=== PATIENT | male | born 1945 | race Two or more races ===

== ENCOUNTER 2024-07-11 05:25 | Day surgery (SDC) | payer MEDICARE, OTHER ==
[~2024-07-11] VITALS: Ht 170.2 cm; Wt 77.2 kg
[~2024-07-11 05:25] MED LIST: CYCLOPENTOLATE HCL 1% 2 ML OPHTHALMIC SOLUTION ONE; KETOROLAC TROMETHAMINE 0.5% 5 ML OPHTHALMIC SOLUTION ONE; MOXIFLOXACIN HCL 0.5% 3 ML OPHTHALMIC SOLUTION ONE; PHENYLEPHRINE HCL 2.5% 2 ML OPHTHALMIC SOLUTION ONE; RINGERS SOLUTION,LACTATED 500 ML IV ONE; TETRACAINE HCL/PF 0.5% 4 ML OPHTHALMIC SOLUTION ONE; TROPICAMIDE 1% 2 ML OPHTHALMIC SOLUTION ONE
[2024-07-11] MEDS ORDERED: EMPA10TA3 PO (06:04)
[2024-07-11] MEDS ORDERED: SIMV-46 PO (06:04)
[2024-07-11] MEDS ORDERED: LISI30TA4 PO (06:04)
[2024-07-11] MEDS: PHENYLEPHRINE HCL 2.5% 2 ML OPHTHALMIC SOLUTION OS SCH (06:08)
[2024-07-11] MEDS: KETOROLAC TROMETHAMINE 0.5% 5 ML OPHTHALMIC SOLUTION OS SCH (06:08)
[2024-07-11] MEDS: MOXIFLOXACIN HCL 0.5% 3 ML OPHTHALMIC SOLUTION OS SCH (06:09)
[2024-07-11] MEDS: TETRACAINE HCL/PF 0.5% 4 ML OPHTHALMIC SOLUTION OS SCH (06:09)
[2024-07-11] MEDS: TROPICAMIDE 1% 2 ML OPHTHALMIC SOLUTION OS SCH (06:14)
[2024-07-11] MEDS: CYCLOPENTOLATE HCL 1% 2 ML OPHTHALMIC SOLUTION OS SCH (06:14)
[2024-07-11] MEDS: RINGERS SOLUTION,LACTATED 500 ML IV ONE (06:15)
[2024-07-11] MEDS ORDERED: PrednisoLONE ACETATE 1% 5 ML OPHTHALMIC SUSPENSION ONE (06:34)
[2024-07-11 06:51] LABS: GLUCOMETER DEV NAME(LOC) SDS.; GLUCOSE,POINT OF CARE 71 MG/DL (70-110)
[2024-07-11] MEDS: BALANCED SALT 15 ML OPHTHALMIC IRRIG.SOLN ONE (08:05)
[2024-07-11] MEDS: EPINEPHrine 1:1,000 [1 MG/ML] VIAL ONE (08:06)
[2024-07-11] MEDS: LIDOCAINE/PF 1% 2 ML VIAL ONE (08:08)
[2024-07-11] MEDS: POVIDONE-IODINE 5% 30 ML OPHTHALMIC SOLUTION ONE (08:09)
[2024-07-11] MEDS: NEOMYCIN/POLYMYXIN B/DEXAMETH 3.5 GM OPHTHALMIC OINTMENT ONE (08:10)
[2024-07-11] MEDS ORDERED: PROPARACAINE HCL 0.5% 15 ML OPHTHALMIC SOLUTION OS ONE (08:45)
[2024-07-11] MEDS ORDERED: GLYCOPYRROLATE 0.2 MG/ML VIAL IM ONE (12:00)
[2024-07-11] MEDS ORDERED: MIDAZOLAM HCL 2 MG/2 ML VIAL IVP ONE (12:00)
[2024-07-11] MEDS ORDERED: FentaNYL CITRATE PF 100 MCG/2 ML VIAL IVP ONE (12:00)
[2024-07-11] MEDS ORDERED: PrednisoLONE ACETATE 1% 5 ML OPHTHALMIC SUSPENSION OS ONE (12:00)
[2024-07-11] MEDS ORDERED: HYALURONATE SOD 8.5MG/0.85ML 10 MG/ML SYRINGE IO ONE (12:00)
[2024-07-11] MEDS ORDERED: HYALURONATE SOD/CHONDROITIN SOD 0.5 ML VIAL IO ONE (12:00)
== END 2024-07-11 09:00 | disposition home or self-care (01) ==
LOC: SURGERY 05:25
PROVIDERS: ATTEND Ophthalmology
DX: E11.36 Type 2 diabetes mellitus with diabetic cataract (principal); H25.12 Age-related nuclear cataract, left eye; I10 Essential (primary) hypertension; Z79.899 Other long term (current) drug therapy; Z98.890 Other specified postprocedural states
CPT/HCPCS: 66984; 82962; 93005; J0171; J3010; J3490 ×2; J2250; J7120; V2632